=== PATIENT | female | born 1965 | race Caucasian/White ===

== ENCOUNTER 2016-10-02 12:57 | Inpatient (IN) | payer BC, OTHER ==
[~2016-10-02] VITALS: Ht 160 cm; Wt 85.0 kg
[~2016-10-02 12:57] MED LIST: ASPI-535 PO; BENA40TA41 PO; HYDR12.58 PO; LORA10TA PO; METO25TA7 PO
[2016-10-02] MEDS ORDERED: morphine 4 MG/ML VIAL IV STA (13:24)
[2016-10-02] MEDS ORDERED: ONDANSETRON 4 MG INJ IV STA (13:24)
[2016-10-02] MEDS ORDERED: ASPIRIN 325 MG TAB PO STA (13:24)
[2016-10-02 13:40] LABS: ADD SCAN DIFF NO
[2016-10-02 13:42] LABS: BASOPHILS % 0.3 % (0.0-2.0); EOSINOPHILS # 0.1 10^3/ul (0.0-0.5); EOSINOPHILS % 0.8 % (0.0-7.0); HEMATOCRIT 40.9 % (37.0-47.0); HEMOGLOBIN 13.7 g/dl (12.0-16.0); LYMPHOCYTES # 2.1 10^3/ul (0.8-2.9); LYMPHOCYTES % 20.5 % (15.0-51.0); MEAN CORPUSCULAR HEMOGLOBIN 31.2 pg (29.0-33.0); MEAN CORPUSCULAR HGB CONC 33.5 g/dl (32.0-37.0); MEAN CORPUSCULAR VOLUME 93.2 fl (82.0-101.0); MEAN PLATELET VOLUME 10.9 fl (7.4-10.4); MONOCYTE # 0.7 10^3/ul (0.3-0.9); MONOCYTES % 6.3 % (0.0-11.0); NEUTROPHIL # 7.4 10^3/ul (1.6-7.5); NEUTROPHILS % 71.5 % (39.0-77.0); PLATELET COUNT 231 10^3/UL (140-415); RED BLOOD COUNT 4.39 10^6/ul (4.20-5.40); WHITE BLOOD COUNT 10.3 10^3/ul (4.8-10.8)
[2016-10-02 14:03] LABS: ANION GAP 12 (8-16); BLOOD UREA NITROGEN 15 mg/dl (7-20); CALCIUM 9.4 mg/dl (8.4-10.2); CARBON DIOXIDE 26 mmol/L (21-31); CHLORIDE 105 mmol/L (97-110); CREATININE 0.54 mg/dl (0.44-1.00); GLUCOSE 91 mg/dl (70-220); POTASSIUM 3.2 mmol/L (3.5-5.1); SODIUM 140 mmol/L (135-144)
[2016-10-02] MEDS ORDERED: SERT50TA PO (14:06)
[2016-10-02] MEDS ORDERED: OMEP20CA16 PO (14:06)
[2016-10-02] MEDS ORDERED: METR500T PO (14:08)
[2016-10-02] MEDS ORDERED: FLUT16SP17 NASAL (14:09)
[2016-10-02 14:14] LABS: B-TYPE NATRIURETIC PEPTIDE 170 PG/ML (0-125)
[2016-10-02 14:19] LABS: INR 0.89; PT RATIO 0.9
[2016-10-02 14:20] LABS: PARTIAL THROMBOPLASTIN TIME 31.1 Sec (25.0-35.0)
[2016-10-02 14:22] LABS: D-DIMER 853.31 ng/ml (<460)
--- NOTE | 2016-10-02 14:22 | RADRPT ---
PROCEDURE: Chest x-ray CLINICAL INDICATION: Chest Pain.. TECHNIQUE: One-view frontal. COMPARISON: 10/21/2012 FINDINGS: The the patient has taken a very limited inspiration. The cardiac silhouette is mildly enlarged. No infiltrates are noted. No hilar abnormalities are identified. No pneumothorax or pleural effusions are visualized. Sternal sutures are again noted. Incidentally noted is a azygos lobe, a normal variation. IMPRESSION: 1. No active cardiopulmonary changes. RPTAT: HGSG .Mark Bey MD, MD Date Time Electronically viewed and signed by .Mark Bey MD, on 10/02/2016 14:22 .G/
[2016-10-02] MEDS ORDERED: SOD CHLORIDE 0.9% 100 ML ONE (14:42)
[2016-10-02] MEDS ORDERED: IOHEXOL 100 ML ONE (14:42)
[2016-10-02 15:08] LABS: TROPONIN-I < 0.012 ng/ml (0.00-0.12)
[2016-10-02] MEDS ORDERED: IOHEXOL 350MG/ML 50 ML BTL ONE (15:59)
--- NOTE | 2016-10-02 16:00 | ERA ---
ER Documentation Chief Complaint Date/Time DATE: 10/02/16 TIME: 15:57 Chief Complaint CHEST PAIN STARTED LAST NIGHT HPI This is a very pleasant 50-year-old female who presents with chest pain. She states a history of cardiac surgery that appeared to be a septal defect surgery , she states a history of possible aortic stenosis though she is unsure. She notes chest pain that was pressure-like and pleuritic that started yesterday evening and has been constant. She denies any exertional symptoms, no fevers or chills, no pain to the middle of her back. She describes approximately 3-5 out of 10 pain currently. ROS All systems reviewed and are negative except as per history of present illness. Medications Home Meds Reported Medications Fluticasone Propionate* (Fluticasone Propionate* Nasal) 50 Mcg/[place] - 16 Gm [place].susp, 2 SPRAYS NASAL DAILY, #1 BOTTLE TO EACH NOSTRIL 10/02/16 Metronidazole* (Flagyl*) 500 Mg Tablet, 500 MG PO BID, TAB STARTED ON 09-29-16 FOR 7 DAYS 10/02/16 Omeprazole* (Omeprazole*) 20 Mg Capsule.dr, 20 MG PO DAILY, #30 CAP 10/02/16 Sertraline Hcl* (Zoloft*) 50 Mg Tablet, 50 MG PO DAILY, #30 TAB 10/02/16 Hydrochlorothiazide* (Hydrochlorothiazide*) 12.5 Mg Tablet, 12.5 MG PO DAILY 05/27/12 Metoprolol Succinate* (Toprol XL*) 25 Mg Tab.sr.24h, 25 MG PO DAILY 05/27/12 Benazepril Hcl* (Benazepril Hcl*) 40 Mg Tablet, 40 MG PO DAILY 05/27/12 Loratadine (Loratadine) 10 Mg Tablet, 10 MG PO DAILY 05/27/12 Aspirin Ec (Aspir 81) 81 Mg Tablet.dr, 81 MG PO DAILY 05/27/12 Allergies Allergies: Coded Allergies: No Known Allergies (Verified Allergy, Unknown, 10/02/16) PMhx/Soc History of Surgery: No Anesthesia Reaction: No Hx Neurological Disorder: No Hx Cardiac Disorders: Yes (HTN,ATRIAL SEPTAL DEFECT ) Hx Psychiatric Problems: No Hx Miscellaneous Medical Probl: No Hx Alcohol Use: No Hx Substance Use: No Hx Tobacco Use: No FmHx Family History: No coronary disease, No diabetes Physical Exam Vitals Vital Signs Date Time Temp Pulse Resp B/P Pulse Ox O2 Delivery O2 Flow Rate FiO2 10/02/16 16:33 78 19 131/70 100 Nasal Cannula 2.0 10/02/16 15:25 81 18 115/66 100 Nasal Cannula 2.0 10/02/16 13:27 Nasal Cannula 2 10/02/16 13:27 88 163/97 100 Nasal Cannula 2.0 10/02/16 13:09 94 20 138/87 98 Physical Exam General: Well developed, well nourished, no acute distress Head: Normocephalic, atraumatic. Eyes: Pupils equally reactive, EOM intact ENT: Moist mucous membranes Neck: Supple, no lymphadenopathy Respiratory: Lungs clear bilaterally, no distress Cardiovascular: RRR, no murmurs, rubs, or gallops Abdominal: Soft, non-tender, non-distended, no peritoneal signs : Deferred MSK: No edema, no unilateral swelling, 5/5 strength, no pulse deficits Neurologic: Alert and oriented, moving all extremities, normal speech, no focal weakness, no cerebellar signs Skin: No rash Psych: Normal mood Result Diagram: 10/02/16 1326 10/02/16 1326 Results 24 hrs Laboratory Tests Test 10/02/16 13:26 White Blood Count 10.310^3/ul Red Blood Count 4.3910^6/ul Hemoglobin 13.7g/dl Hematocrit 40.9% Mean Corpuscular Volume 93.2fl Mean Corpuscular Hemoglobin 31.2pg Mean Corpuscular Hemoglobin Concent 33.5g/dl Red Cell Distribution Width 13.0% Platelet Count 32819^3/UL Mean Platelet Volume 10.9fl Neutrophils % 71.5% Lymphocytes % 20.5% Monocytes % 6.3% Eosinophils % 0.8% Basophils % 0.3% Nucleated Red Blood Cells % 0.0/100WBC Neutrophils # 7.410^3/ul Lymphocytes # 2.110^3/ul Monocytes # 0.710^3/ul Eosinophils # 0.110^3/ul Basophils # 0.010^3/ul Nucleated Red Blood Cells # 0.010^3/ul Prothrombin Time 12.0Sec Prothrombin Time Ratio 0.9 INR International Normalized Ratio 0.89 Activated Partial Thromboplast Time 31.1Sec D-Dimer 853.31ng/ml D-Dimer Comment Sodium Level 140mmol/L Potassium Level 3.2mmol/L Chloride Level 105mmol/L Carbon Dioxide Level 26mmol/L Anion Gap 12 Blood Urea Nitrogen 15mg/dl Creatinine 0.54mg/dl Glucose Level 91mg/dl Calcium Level 9.4mg/dl Troponin I < 0.012ng/ml B-Type Natriuretic Peptide 170PG/ML Serum HCG, Qualitative NEGATIVE Current Medications Medications (Trade) Dose Ordered Sig/Rowena Route PRN Reason Start Time Stop Time Status Last Admin Dose Admin Aspirin (Aspirin) 325 mg ONCE STAT PO 10/02/16 13:24 10/02/16 13:26 DC 10/02/16 13:33 Morphine Sulfate (morphine) 4 mg ONCE STAT IV 10/02/16 13:24 10/02/16 13:26 DC 10/02/16 13:34 Ondansetron HCl (Zofran Inj) 4 mg ONCE STAT IV 10/02/16 13:24 10/02/16 13:27 DC 10/02/16 13:34 IV Flush 10 ml 10 ml STK-MED ONCE .ROUTE 10/02/16 14:42 10/02/16 14:43 DC 10/02/16 16:00 Sodium Chloride 100 ml @ ud STK-MED ONCE .ROUTE 10/02/16 14:42 10/02/16 14:43 DC 10/02/16 16:15 Iohexol (Omnipaque) 100 ml @ ud STK-MED ONCE .ROUTE 10/02/16 14:42 10/02/16 14:43 DC 10/02/16 16:15 Iohexol (Omnipaque 350mg/ ml) 50 ml STK-MED ONCE .ROUTE 10/02/16 15:59 10/02/16 16:00 DC Ondansetron HCl (Zofran Inj) 4 mg ER BRIDGE PRN IV NAUSEA AND/OR VOMITING 10/02/16 17:00 10/03/16 16:59 Acetaminophen (Tylenol Tab) 650 mg ER BRIDGE PRN PO MILD PAIN/FEVER 10/02/16 17:00 10/03/16 16:59 Procedures/MDM EKG, MONITORS, & DIAGNOSTIC IMAGING: EKG: I reviewed and interpreted a 12-lead EKG. Rhythm: Normal sinus rhythm Ectopy: None Intervals: No abnormalities ST segments: No elevations or depressions, no reciprocal changes T waves: No contiguous inversions *EKG read showed acute NM however this appears to be more likely secondary to wandering baseline or lead placement Repeat EKG: EKG: I reviewed and interpreted a 12-lead EKG. Rhythm: Normal sinus rhythm Ectopy: None Intervals: No abnormalities ST segments: No elevations or depressions T waves: No contiguous inversions Repeat EKG: EKG: I reviewed and interpreted a 12-lead EKG. Rhythm: Normal sinus rhythm Ectopy: None Intervals: No abnormalities ST segments: No elevations or depressions T waves: No contiguous inversions Chest x-ray: I reviewed and interpreted a 1 view of the chest Mediastinum: No enlargement Cardiac silhouette: No cardiomegaly Airspace: Clear lung mills bilaterally without evidence of pneumothorax Bones: No evidence of fracture CTPA: IMPRESSION: 1. No pulmonary embolism. 2. Mild bronchial wall thickening may be sequela of bronchitis, asthma, or other nonspecific airway inflammation. 3. Mild cardiomegaly with enlargement of the main pulmonary artery which may suggest pulmonary arterial hypertension. RPTAT:PP LAB INTERPRETATION: Negative troponin, elevated d-dimer MEDICAL DECISION MAKING: The patient's history, physical exam and clinical presentation is concerning for possible cardiogenic etiology and acute coronary syndrome. The patient's initial EKG at triage with acute NM however I did not feel this was consistent with an ST elevation myocardial infarction. He did not meet criteria. She was emergently placed in room for repeat EKG was obtained that showed no evidence of acute cardiac ischemia. Her pain was improving. The patient meets wells low risk criteria, given pleuritic pain a d-dimer would be appropriate. Based on the patient's clinical exam and history and risk factors, I have a much lower clinical concern for pulmonary embolism, acute aortic dissection, pneumothorax, pneumonia, cardiac tamponade HEART Score: 4 MACE Rate: 16.6% Shared Decision Making: We had a conversation regarding risk stratification, MACE rate, and the risks, benefits, alternatives of disposition planning options. Disposition planning: I would strongly recommend inpatient hospitalization given her risk profile. Patient is agreeable. ER COURSE: The patient was emergently placed in room for as documented above. She was given aspirin, held a nitroglycerin given possible report of aortic stenosis. Morphine provided. Pain improved. Her d-dimer is positive, this prompts CTPA. CTPA negative. The patient is chest pain-free. Awaiting bed. I kept the patient and/or family informed of laboratory and diagnostic imaging results throughout the emergency room course. DISPOSITION PLAN: Telemetry admission for management of chest pain and rule out of acute coronary syndrome CONSULTATION: Accepting care team and consultations: I discussed the current laboratory data, diagnostic imaging and emergency care provided. Admitting team: Dr. Dowell Admitting team indication: Insurance directed Departure Diagnosis: Primary Impression: Chest pain Qualified Code: R07.9 - Chest pain, unspecified type Condition: Stable MIGUEL ZAVALA MD October 02, 2016 16:00
--- NOTE | 2016-10-02 16:25 | RADRPT ---
PROCEDURE: CT ANGIOGRAPHY CHEST CLINICAL INDICATION: Shortness of breath TECHNIQUE: Volumetrically acquired images of the thorax obtained with intravenous contrast were re formatted in the axial, coronal, and sagittal planes. CTDI = 16.6 mGy; DLP = 630 mGy-cm. 100 cc of Omnipaque 350 was administered. 3D MIP multiplanar reconstructions were performed and evaluated on the workstation. One or more of the following dose reduction technique were used: Automatic exposure control, adjustment of the mA and/or kV according to patient size, and use of iterative reconstruct ion technique. COMPARISON: Chest x-ray from 10/02/2016. FINDINGS: LOWER NECK AND CHEST WALL: Demonstrates a sub centimeter right thyroid nodule of doubtful clinical s ignificance AIRWAYS: The trachea and large airways are normal. Mild bronchial wall thickening is seen. LUNGS: Clear. No suspicious nodules, masses, or consolidation. PLEURA: Unremarkable. No pleural thickening or effusions. LYMPH NODES: No significant axillary, hilar, or mediastinal lymphadenopathy by CT size criteria. CARDIAC: Robertson cava. The heart is mildly enlarged. No pericardial effusion. VASCULAR: The main pulmonary artery measures up to 32 mm . The aorta and main pulmonary artery are normal in caliber. OSSEOUS: No suspicious osseous lesions. Limited evaluation of the upper abdomen is unremarkable. IMPRESSION: 1. No pulmonary embolism. 2. Mild bronchial wall thickening may be sequela of bronchitis, asthma, or other nonspecific airway inflammation. 3. Mild cardiomegaly with enlargement of the main pulmonary artery which may suggest pulmonary desirae rial hypertension. RPTAT:PP .Wenceslao Russell MD, MD Date Time Electronically viewed and signed by .Wenceslao Russell MD, MD on 10/02/2016 16:24 .V/
[2016-10-02] MEDS ORDERED: ONDANSETRON 4 MG INJ IV PRN ×2 (17:00→18:00)
[2016-10-02] MEDS ORDERED: ACETAMINOPHEN 325 MG TAB PO PRN (17:00)
[2016-10-02] MEDS ORDERED: POTASSIUM CHLORIDE 30 MEQ in SOD CHLORIDE 0.9% 150 ML IVPB ONE (18:00)
[2016-10-02 20:11] LABS: CREATINE KINASE 61 IU/L (23-200)
[2016-10-02 20:20] LABS: CK-MB 0.66 ng/ml (0.0-2.4)
[2016-10-02 20:25] LABS: TROPONIN-I < 0.012 ng/ml (0.00-0.12)
[2016-10-02] MEDS ORDERED: FUROSEMIDE 20 MG INJ IV ONE (21:00)
[2016-10-02] MEDS ORDERED: FAMOTIDINE 20 MG TAB PO SCH (21:00)
[2016-10-02] MEDS ORDERED: ALBUTEROL 0.083% (NEB) 2.5 MG/3 ML AMP HHN PRN (21:00)
[2016-10-02] MEDS: METOPROLOL 25 MG TAB PO SCH (21:09)
[2016-10-02 21:45] VITALS: BP 127/59; RESP 18
[2016-10-02 21:56] VITALS: PULSE 66
[2016-10-02 22:43] VITALS: Ht 160 cm; Wt 85.0 kg
[2016-10-02 23:37] VITALS: BP 130/61; RESP 18
[2016-10-03] VITALS (7 sets, daily range): BP systolic 109–124; BP diastolic 60–64; PULSE 59–65; RESP 17–18
--- NOTE | 2016-10-03 00:24 | HP ---
DATE OF ADMISSION: 10/02/2016 PRESENTING COMPLAINT: Chest pain. HISTORY OF PRESENTING COMPLAINT: A 50-year-old female with past medical history of high blood press ure who presents to the emergency room today with concerns of chest pain that is said to be pressure -like in nature and worsened with respiration. The pain is not associated with diaphoresis. The pa in does occasionally radiate to her left arm. There is no syncopal episode, no fever. There is occas ional cough. She has also had a history of shortness of breath with exertion for the last couple of days. She denies abdominal pain, nausea or vomiting. Denies diarrhea or blood in her stool, blood in her urine. Also denies dysuria. PAST MEDICAL HISTORY: 1. High blood pressure. 2. Allergies. 3. GERD. 4. Depression. HOME MEDICATIONS 1. Aspirin. 2. Benazepril. 3. ____. 4. Hydrochlorothiazide. 5. Loratadine. 6. Toprol XL. 7. Omeprazole. 8. Zoloft. PAST SURGICAL HISTORY: She has had surgical repair in her heart, but it sounds like she might have had a congenital heart disease that was repaired. ALLERGIES: NO KNOWN DRUG ALLERGIES. SOCIAL HISTORY: Denies tobacco, alcohol or illicit drug use. FAMILY HISTORY: Negative for premature coronary artery disease. REVIEW OF SYSTEMS: A 12-point review of systems was done. Pertinent findings are as noted in the H PI. PHYSICAL EXAMINATION VITAL SIGNS: Heart rate 78, respirations 19, blood pressure 131/70, saturations 100% on nasal cannu la at 2 liters. GENERAL: The patient was alert and oriented, currently comfortable, in no distress. HEENT: Head is normocephalic, atraumatic. Pupils equal, round, and reactive. Mucous membranes are moist. Posterior pharynx clear of erythema and exudate. NECK: Supple without adenopathy or JVD. CHEST: Clear to auscultation without wheezing, but diffusely reduced air entry on both sides. CARDIOVASCULAR: S1 and 2 without murmurs. ABDOMEN: Obese, soft, nontender, nondistended with normoactive bowel sounds. EXTREMITIES: There is no lower extremity edema. NEUROLOGIC: She has no focal deficits. SKIN: Devoid of rash or jaundice. PSYCHIATRIC: She was calm ____. LABORATORY VALUES: Basically a complete review of her CBC, BMP were all negative. Her potassium wa s 3.2, however. LFTs are not done. D-dimer was slightly elevated at 853 and as such, she underwent a CTA which showed nonspecific airway inflammation, mild cardiomegaly and enlargement of the main pu lmonary artery suggestive of pulmonary artery hypertension and mild bronchial wall thickening sugges tive of bronchospasm and asthma. ASSESSMENT: A 48-year-old female who presents with pleuritic chest pain and shortness, of breath on exertion managed as follows: 1. Chest pain, rule out acute coronary syndrome. 2. Pulmonary hypertension plus shortness of breath on exertion, rule out diastolic heart failure. 3. History of cardiac surgery likely repair of congenital heart disease. 4. Hypertension, uncontrolled. 5. Hypokalemia. 6. Elevated D-dimer without evidence of pulmonary embolism on CT scan. 7. Chronic allergies. PLAN: The patient will be admitted to telemetry floor and rule out for ACS with 3 sets of cardiac e nzymes. Will also get a 2D echo to assess for possible heart failure. She will be started on breat reanna treatments. I think she will benefit from cardiology review and possibly even pulmonary review depending on how she does. Will continue her home medications. Provide supportive care with pain management and antiemetics as needed. Further interventions will depend on her clinical course. I reviewed this plan of care, have answered questions. For prophylaxis, she will be placed on SCDs and H2 blockers. Dictated By: ARIN VELA MD, BA/NTS Conf#: [id number] DID#: [id number]
[2016-10-03 01:36] LABS: CREATINE KINASE 59 IU/L (23-200)
[2016-10-03 01:49] LABS: CK-MB 0.71 ng/ml (0.0-2.4)
[2016-10-03 01:53] LABS: TROPONIN-I < 0.012 ng/ml (0.00-0.12)
[2016-10-03] MEDS ORDERED: PANTOPRAZOLE (EC) 40 MG TAB PO SCH (06:00)
[2016-10-03] MEDS: METOPROLOL 25 MG TAB PO SCH (08:27)
[2016-10-03] MEDS ORDERED: FLUTICASONE 0.05% 16 GM NAS SPRAY NASAL SCH (09:00)
[2016-10-03] MEDS ORDERED: BENAZEPRIL 40 MG TAB PO SCH (09:00)
[2016-10-03] MEDS ORDERED: LORATADINE 10 MG TAB PO SCH (09:00)
[2016-10-03] MEDS ORDERED: HYDROCHLOROTHIAZIDE 12.5 MG CAP PO SCH (09:00)
[2016-10-03] MEDS ORDERED: ASPIRIN (EC) 81 MG TAB PO SCH (09:00)
[2016-10-03] MEDS ORDERED: SERTRALINE 50 MG TAB PO SCH (09:00)
[2016-10-03 10:29] LABS: ADD SCAN DIFF NO
[2016-10-03 10:33] LABS: BASOPHILS % 0.3 % (0.0-2.0); EOSINOPHILS # 0.1 10^3/ul (0.0-0.5); EOSINOPHILS % 1.3 % (0.0-7.0); HEMATOCRIT 39.3 % (37.0-47.0); HEMOGLOBIN 13.2 g/dl (12.0-16.0); LYMPHOCYTES # 1.8 10^3/ul (0.8-2.9); LYMPHOCYTES % 23.1 % (15.0-51.0); MEAN CORPUSCULAR HEMOGLOBIN 31.5 pg (29.0-33.0); MEAN CORPUSCULAR HGB CONC 33.6 g/dl (32.0-37.0); MEAN CORPUSCULAR VOLUME 93.8 fl (82.0-101.0); MEAN PLATELET VOLUME 10.6 fl (7.4-10.4); MONOCYTE # 0.6 10^3/ul (0.3-0.9); MONOCYTES % 7.4 % (0.0-11.0); NEUTROPHIL # 5.4 10^3/ul (1.6-7.5); NEUTROPHILS % 67.1 % (39.0-77.0); PLATELET COUNT 224 10^3/UL (140-415); RED BLOOD COUNT 4.19 10^6/ul (4.20-5.40)
[2016-10-03 10:51] LABS: ALBUMIN 3.9 g/dl (3.3-4.9); BILIRUBIN,INDIRECT 0.3 mg/dl (0-1.1); BILIRUBIN,TOTAL 0.3 mg/dl (0.2-1.3); CALCIUM 8.9 mg/dl (8.4-10.2); CREATININE 0.6 mg/dl (0.44-1.00); POTASSIUM 3.9 mmol/L (3.5-5.1); TOTAL PROTEIN 7.1 g/dl (6.1-8.1)
[2016-10-03 11:21] LABS: THYROID STIMULATING HORMONE 1.22 MIU/L (0.465-4.680)
--- NOTE | 2016-10-03 11:43 | RADRPT ---
Echocardiogram Report Patient Name: TUAN JONES Gender: Female Date: 1965 Study Date: 03-Oct-2016 [employer]: Location: I Ref. Physician: ARIN VELA Quality: Good Procedures: Transthoracic echocardiogram with complete 2D, M-Mode, and doppler examination. Indications: Chest Pain. 2D/M Mode Doppler Measurement Value Normal Ranges Measurement Value Normal Ranges LVIDd 2D 4.8 3.5 - 5.6 cm AV Peak [facility] 1.6 m/sec LVIDs 2D 2.7 2.1 - 4.1 cm AV Peak PG 9.7 mmHg LVPWd 2D 1.1 0.6 - 1.1 cm LVOT Peak [facility] 1.1 m/sec IVSd 2D 1.1 0.6 - 1.1 cm LVOT Peak PG 5.0 mmHg AoR Diam 2D 1.9 2.0 - 3.7 cm MV E Peak [facility] 1.0 m/sec EDV 2D 108.9 cm3 MV A Peak [facility] 0.6 m/sec ESV 2D 19.0 cm3 MV E/A 1.6 MV Decel Time 222 msec MV Decel Mayes 4 MV E/A 1.6 TR Peak [facility] 2.0 m/sec TR Peak PG 16.2 mmHg Findings Left Ventricle: Normal left ventricular systolic function. Normal left ventricular cavity size. Normal left ventricular wall thickness. Ejection fraction is visually estimated at 65 %. Tissue Doppler/Mitral Doppler indices are within normal limits. Right Ventricle: Normal right ventricular size. Normal right ventricular systolic function. Left Atrium: The left atrium is normal in size. Right Atrium: The right atrium is normal in size. Mitral Valve: Normal appearance and function of the mitral valve with trace physiologic regurgitation. Aortic Valve: Normal appearance of the aortic valve. No significant aortic stenosis or insufficiency. Tricuspid Valve: Normal appearance and function of the tricuspid valve with trace physiologic regurgitation. Pulmonic Valve: Normal pulmonic valve appearance. Pericardium: Normal pericardium with no significant pericardial effusion. Aorta: Normal aortic root. IVC: Normal size and normal respiratory collapse consistent with normal right atrial pressure. Conclusions Normal left ventricular systolic function. Normal left ventricular cavity size. Normal left ventricular wall thickness. Ejection fraction is visually estimated at 65 %. Tissue Doppler/Mitral Doppler indices are within normal limits. Normal right ventricular size. Normal right ventricular systolic function. The left atrium is normal in size. The right atrium is normal in size. No significant valvular stenosis or regurgitation seen. Normal pericardium with no significant pericardial effusion. Electronically Signed By: Ivan Will 03-Oct-2016 11:42:00 -0700 Patient Name: TUAN JONES Study Date: 03-Oct-2016 [id number]
--- NOTE | 2016-10-03 11:49 | CONS ---
Date/Time of Note Date/Time of Note DATE: 10/03/16 TIME: 11:43 Assessment/Plan Assessment/Plan Additional Assessment/Plan Abdominal and chest pain Preserved ejection fraction Atrial septal defect status post surgical repair 2012 Hypertension -Patient with sharp pain on the left side under her breasts with deep inspiration. CT pulmonary angiogram negative for pulmonary emboli but with evidence of possible bronchitis/inflammation. Serial cardiac enzymes remain negative, there is not an exertional component to her symptoms. Echocardiogram with preserved ejection fraction. Cardiac catheterization performed in 2012, as per report, no evidence of obstructive coronary artery disease. Symptoms do not appear cardiac in origin. Would evaluate other noncardiac causes for patient's symptoms. If no new symptoms, no further inpatient cardiac workup needed at the current time. Consultation Date/Type/Reason Admit Date/Time October 02, 2016 at 21:45 Type of Consultation: cv Reason for Consultation Chest pain Hx of Present Illness This is a 50-year-old female with past medical history of hypertension, atrial septal defect status post surgical repair who presents with left-sided abdominal and chest pain. Patient with diarrhea, nausea and abdominal pain off and on over the past for 5 days. Yesterday, patient developed sharp discomfort under the left breast. Pain was exacerbated by deep inspiration and revealed by exhaling. Denies diaphoresis, shortness of breath, exertional chest pain or shortness of breath. Symptoms were getting worse yesterday evening so she came to the emergency room for evaluation and care. Symptoms are much better today with minimal discomfort with deep inspiration. She denies any dizziness or lightheadedness. 12 point review of systems was performed with all pertinent positives and negatives mentioned above and all else is negative Past Medical History Atrial septal defect status post surgical repair Hypertension Past Surgical History Surgical repair of atrial septal defect Family History Significant Family History: no pertinent family hx Social History Alcohol Use: rarely Smoking Status: Never smoker Other Social History Works at [employer] Exam/Review of Systems Vital Signs Vitals Vital Signs Date Time Temp Pulse Resp B/P Pulse Ox O2 Delivery O2 Flow Rate FiO2 10/03/16 08:34 65 10/03/16 07:37 98.1 18 124/60 98 10/02/16 23:25 Nasal Cannula 2.0 Intake and Output 10/02/16 10/02/16 10/03/16 15:00 23:00 07:00 Intake Total 550 ml Balance 550 ml Exam No apparent distress Constitutional: alert, obese, oriented Head: normocephalic Neck: supple Respiratory: clear to auscultation, normal air movement Cardiovascular: other (S1-S2 heard, no murmurs appreciated), regular rate and rhythm Gastrointestinal: bowel sounds, non-tender, other (No guarding), soft Extremities: other (No edema or cyanosis) Results Result Diagram: 10/03/16 1018 10/03/16 1018 Results 24 hrs Laboratory Tests Test 10/02/16 13:26 10/02/16 19:24 10/03/16 01:03 10/03/16 10:18 White Blood Count 10.3 8.0 # Red Blood Count 4.39 4.19 L Hemoglobin 13.7 13.2 Hematocrit 40.9 39.3 Mean Corpuscular Volume 93.2 93.8 Mean Corpuscular Hemoglobin 31.2 31.5 Mean Corpuscular Hemoglobin Concent 33.5 33.6 Red Cell Distribution Width 13.0 13.0 Platelet Count 231 224 Mean Platelet Volume 10.9 H 10.6 H Neutrophils % 71.5 67.1 Lymphocytes % 20.5 23.1 Monocytes % 6.3 7.4 Eosinophils % 0.8 1.3 Basophils % 0.3 0.3 Nucleated Red Blood Cells % 0.0 0.0 Neutrophils # 7.4 5.4 Lymphocytes # 2.1 1.8 Monocytes # 0.7 0.6 Eosinophils # 0.1 0.1 Basophils # 0.0 0.0 Nucleated Red Blood Cells # 0.0 0.0 Prothrombin Time 12.0 L Prothrombin Time Ratio 0.9 INR International Normalized Ratio 0.89 Activated Partial Thromboplast Time 31.1 D-Dimer 853.31 H D-Dimer Comment Sodium Level 140 138 Potassium Level 3.2 L 3.9 Chloride Level 105 103 Carbon Dioxide Level 26 28 Anion Gap 12 11 Blood Urea Nitrogen 15 14 Creatinine 0.54 0.60 Glucose Level 91 104 Calcium Level 9.4 8.9 Troponin I < 0.012 < 0.012 < 0.012 B-Type Natriuretic Peptide 170 H Serum HCG, Qualitative NEGATIVE Creatine Kinase 61 59 Creatine Kinase Index 1.1 1.2 Creatinine Kinase MB (Mass) 0.66 0.71 Magnesium Level 2.0 Total Bilirubin 0.3 Direct Bilirubin 0.00 Indirect Bilirubin 0.3 Aspartate Amino Transf (AST/SGOT) 22 Alanine Aminotransferase (ALT/SGPT) 44 Alkaline Phosphatase 63 Total Protein 7.1 Albumin 3.9 Thyroid Stimulating Hormone (TSH) 1.220 Medications Medications Current Medications Aspirin (Halfprin) 81 mg DAILY PO Last administered on 10/03/16 08:26; Admin Dose 81 MG; Start 10/03/16 at 09:00 Benazepril HCl (Lotensin) 40 mg DAILY PO Last administered on 10/03/16 08:28; Admin Dose 40 MG; Start 10/03/16 at 09:00 Fluticasone Propionate (Flonase 0.05% Nasal) 1 spray DAILY NASAL ; Start at 09:00 Hydrochlorothiazide (Hydrochlorothiazide) 12.5 mg DAILY PO Last administered on 10/03/16 08:27; Admin Dose 12.5 MG; Start 10/03/16 at 09:00 Loratadine (Claritin) 10 mg DAILY PO Last administered on 10/03/16 08:27; Admin Dose 10 MG; Start 10/03/16 at 09:00 Sertraline HCl (Zoloft) 50 mg DAILY PO Last administered on 10/03/16 08:26; Admin Dose 50 MG; Start 10/03/16 at 09:00 Pantoprazole (Protonix Tab) 40 mg DAILY@06 PO Last administered on 10/03/16 06: 04; Admin Dose 40 MG; Start 10/03/16 at 06:00 Metoprolol Tartrate (Lopressor) 25 mg BID PO Last administered on 10/03/16 08: 27; Admin Dose 25 MG; Start 10/02/16 at 21:00 Ondansetron HCl (Zofran Inj) 4 mg Q6H PRN IV NAUSEA AND/OR VOMITING; Start 10/02 at 18:00 Procedures Procedures ECG demonstrates sinus rhythm at 77 bpm, normal QRS duration, nonspecific STT wave abnormalities Ivan Will DO October 03, 2016 11:49
[2016-10-03] MEDS ORDERED: AZIT250T6 PO (14:42)
--- NOTE | 2016-10-03 14:48 | DS ---
Date/Time of Note Date/Time of Note DATE: 10/03/16 TIME: 14:44 Discharge Summary Admission/Discharge Info Admit Date/Time October 02, 2016 at 21:45 Discharge Date/Time Final Diagnosis 1. Chest pain, noncardiac, resolved 2. Acute bronchitis, zithromax 3. Hypertension, stable Patient Condition: Stable Hospital Course This is a 50-year-old female with past medical history of hypertension, atrial septal defect status post surgical repair who presents with left-sided abdominal and chest pain. Patient coughs with diarrhea, nausea and abdominal pain off and on over the past for 5 days. Yesterday, patient developed sharp discomfort under the left breast. Pain was exacerbated by deep inspiration and revealed by exhaling. Denies diaphoresis, shortness of breath, exertional chest pain or shortness of breath. Symptoms were getting worse yesterday evening so she came to the emergency room for evaluation and care. Symptoms are much better today with minimal discomfort with deep inspiration. She denies any dizziness or lightheadedness. Chest pain resolved today. Negative troponin and echo. Patient had negative coronary angiography in 2012. Chest pain is chest well pain. No futher cardiac work up needed. She is treated with zithromax for acute bronchitis. Home Meds Active Scripts Azithromycin* (Azithromycin*) 250 Mg Tablet, 250 MG PO DAILY, #4 TAB Prov:JAJA MONTERO MD 10/03/16 Reported Medications Fluticasone Propionate* (Fluticasone Propionate* Nasal) 50 Mcg/[place] - 16 Gm [place].susp, 2 SPRAYS NASAL DAILY, #1 BOTTLE TO EACH NOSTRIL 10/02/16 Omeprazole* (Omeprazole*) 20 Mg Capsule.dr, 20 MG PO DAILY, #30 CAP 10/02/16 Sertraline Hcl* (Zoloft*) 50 Mg Tablet, 50 MG PO DAILY, #30 TAB 10/02/16 Hydrochlorothiazide* (Hydrochlorothiazide*) 12.5 Mg Tablet, 12.5 MG PO DAILY 05/27/12 Metoprolol Succinate* (Toprol XL*) 25 Mg Tab.sr.24h, 25 MG PO DAILY 05/27/12 Benazepril Hcl* (Benazepril Hcl*) 40 Mg Tablet, 40 MG PO DAILY 05/27/12 Loratadine (Loratadine) 10 Mg Tablet, 10 MG PO DAILY 05/27/12 Aspirin Ec (Aspir 81) 81 Mg Tablet.dr, 81 MG PO DAILY 05/27/12 Discontinued Reported Medications Metronidazole* (Flagyl*) 500 Mg Tablet, 500 MG PO BID, TAB STARTED ON 09-29-16 FOR 7 DAYS 10/02/16 Follow-up Plan PCP in one week Pending Labs Laboratory Tests Test 10/02/16 19:24 10/03/16 01:03 10/03/16 10:18 Creatine Kinase 61IU/L (23-200) 59IU/L (23-200) Creatine Kinase Index 1.1 1.2 Creatinine Kinase MB (Mass) 0.66ng/ml (0.0-2.4) 0.71ng/ml (0.0-2.4) Troponin I < 0.012ng/ml (0.00-0.12) < 0.012ng/ml (0.00-0.12) White Blood Count 8.010^3/ul (4.8-10.8) Red Blood Count 4.1910^6/ul (4.20-5.40) Hemoglobin 13.2g/dl (12.0-16.0) Hematocrit 39.3% (37.0-47.0) Mean Corpuscular Volume 93.8fl (82.0-101.0) Mean Corpuscular Hemoglobin 31.5pg (29.0-33.0) Mean Corpuscular Hemoglobin Concent 33.6g/dl (32.0-37.0) Red Cell Distribution Width 13.0% (11.5-14.5) Platelet Count 45286^3/UL (140-415) Mean Platelet Volume 10.6fl (7.4-10.4) Neutrophils % 67.1% (39.0-77.0) Lymphocytes % 23.1% (15.0-51.0) Monocytes % 7.4% (0.0-11.0) Eosinophils % 1.3% (0.0-7.0) Basophils % 0.3% (0.0-2.0) Nucleated Red Blood Cells % 0.0/100WBC (0.0-0.0) Neutrophils # 5.410^3/ul (1.6-7.5) Lymphocytes # 1.810^3/ul (0.8-2.9) Monocytes # 0.610^3/ul (0.3-0.9) Eosinophils # 0.110^3/ul (0.0-0.5) Basophils # 0.010^3/ul (0.0-0.1) Nucleated Red Blood Cells # 0.010^3/ul (0.0-0.0) Sodium Level 138mmol/L (135-144) Potassium Level 3.9mmol/L (3.5-5.1) Chloride Level 103mmol/L (97-110) Carbon Dioxide Level 28mmol/L (21-31) Anion Gap 11 (8-16) Blood Urea Nitrogen 14mg/dl (7-20) Creatinine 0.60mg/dl (0.44-1.00) Glucose Level 104mg/dl (70-220) Calcium Level 8.9mg/dl (8.4-10.2) Magnesium Level 2.0mg/dl (1.7-2.5) Total Bilirubin 0.3mg/dl (0.2-1.3) Direct Bilirubin 0.00mg/dl (0.00-0.20) Indirect Bilirubin 0.3mg/dl (0-1.1) Aspartate Amino Transf (AST/SGOT) 22IU/L (15-46) Alanine Aminotransferase (ALT/SGPT) 44IU/L (13-69) Alkaline Phosphatase 63IU/L (42-121) Total Protein 7.1g/dl (6.1-8.1) Albumin 3.9g/dl (3.3-4.9) Thyroid Stimulating Hormone (TSH) 1.220MIU/L (0.465-4.680) JAJA MONTERO MD October 03, 2016 14:48
[2016-10-03] MEDS ORDERED: AZITHROMYCIN 250 MG TAB PO ONE (15:00)
== END 2016-10-03 15:35 | disposition home or self-care (01) | DRG 313 ==
LOC: E/R 12:57 → MS4 21:45
PROVIDERS: ADMIT Family Medicine; ATTEND Family Medicine
DX: R07.89 Other chest pain (principal); I10 Essential (primary) hypertension; J20.9 Acute bronchitis, unspecified; E87.6 Hypokalemia
CPT/HCPCS: 36415; 71010; 71275; 80048; 80076; 82550; 82553; 83735; 83880; 84443; 84484; 84703; 85025; 85378; 85610; 85730; 93005; 93306; 96374; 96375; J1940; J2270; J2405; Q9967